=== PATIENT | male | born 2000 | race Caucasian/White ===

== ENCOUNTER 2024-08-02 10:00 | Outpatient (CLI) | payer BC ==
[2024-08-02] MEDS ORDERED: Iopamidol 300 61% 100 ML VIAL FS ONE (13:31)
== END 2024-08-02 10:01 | disposition home or self-care (01) ==
LOC: CSHCT 10:00
PROVIDERS: ATTEND Internal Medicine Gastroenterology
DX: R10.2 Pelvic and perineal pain (principal); R14.0 Abdominal distension (gaseous)
CPT/HCPCS: 74177; Q9967